=== PATIENT | male | born 1975 | race Hispanic/Latino ===

== ENCOUNTER 2018-02-07 10:15 | Emergency (ER) | payer BC, OTHER ==
[2018-02-07] MEDS ORDERED: IOPAMIDOL-370 75 ML VIAL IV ONE (10:38)
[2018-02-07] MEDS ORDERED: KETOROLAC TROMETHAMINE 30MG/ML ONE (10:45)
[2018-02-07] MEDS ORDERED: SODIUM CHLORIDE 0.9% 1000ML 1,000 ML IV ONE (10:45)
== END 2018-02-07 12:31 | disposition home or self-care (01) ==
LOC: EDH 10:15
DX: S20.212A Contusion of left front wall of thorax, initial encounter (principal); S09.90XA Unspecified injury of head, initial encounter; M54.2 Cervicalgia; Z91.013 Allergy to seafood; V49.49XA Driver injured in collision with other motor vehicles in traffic accident, initial encounter; Y92.89 Other specified places as the place of occurrence of the external cause; Y99.8 Other external cause status
CPT/HCPCS: 70450; 71260; 72125; 74177; 93005; 96374; 99285; J1885; J7030; Q9967

== ENCOUNTER → 2022-10-29 | Outpatient (CLI) | payer OTHER | END | disposition home or self-care (01) | LOC: RAH 08:17 | PROVIDERS: ATTEND Internal Medicine | DX: R10.12 Left upper quadrant pain (principal) | CPT/HCPCS: 76700 ==